=== PATIENT | male | born 1950 | race African-American/Black ===

== ENCOUNTER 2018-04-16 18:10 | Emergency (ER) | payer OTHER, MEDICAID ==
[~2018-04-16] VITALS: Ht 180.3 cm; Wt 83.9 kg
--- NOTE | 2018-04-16 18:30 | NUR ---
ED Nurse Note: Pt present at ER c/o back pain 08/25 which is chronic. pt aao x4 and skin dry but intact. calm and cooperative.
[2018-04-16] MEDS ORDERED: BENAZEPRIL HCL40 MG ORAL (18:34)
[2018-04-16] MEDS ORDERED: HYDROCHLOROTH12.5 M2 ORAL (18:34)
[2018-04-16] MEDS ORDERED: TERAZOSIN HCL1 MG ORAL (18:35)
[2018-04-16] MEDS ORDERED: Isovue-300 100ml vial INJ PRN (18:45)
--- NOTE | 2018-04-16 18:49 | Emergency Room Report ---
History of Present Illness General Chief Complaint: Back Pain-No Injury Source: Patient (Navid Regalado) Present Illness HPI 67-year-old male patient presents the ER complaining of lower back fullness that is radiating up his back to the base of his skull. Denies pain. Reports fullness is radiating down his legs. States pain has been present for the past year however has increased in intensity in the past week. Denies recent travel outside the country.. Denies history of heart disease, reports history of high blood pressure denies fever, chest pain or shortness of breath. Denies abdominal pain. Denies history of IV drug use.e states well controlled. Denies bowel or bladder incontinence. Reports has not taken medication for the past year for relief of symptoms. Reports that he was seen by primary care year ago and was told to go to physical therapy however states that he did not want to go. Denies other aggravating or relieving factors. (Navid Regalado) Allergies: Coded Allergies: No Known Allergies (Unverified , 04/16/18) Patient History Past Medical History: see triage record Reviewed Nursing Documentation: PMH: Agreed; PSxH: Agreed (Navid Regalado) Nursing Documentation-PMH Past Medical History: No History, Except For Hx Hypertension: Yes (Navid Regalado) Review of Systems All Other Systems: negative except mentioned in HPI (Navid Regalado) Physical Exam Vital Signs Date Time Temp Pulse Resp B/P (MAP) Pulse Ox O2 Delivery O2 Flow Rate FiO2 04/16/18 18:31 98.2 51 16 142/74 96 Room Air Sp02 EP Interpretation: reviewed, normal General Appearance: well appearing, no apparent distress, alert, GCS 15, non- toxic Head: normocephalic, atraumatic Eyes: bilateral eye normal inspection, bilateral eye PERRL ENT: hearing grossly normal, normal pharynx, no angioedema, normal voice, uvula midline, moist mucus membranes Neck: full range of motion, no meningismus, no bony tend Respiratory: lungs clear, normal breath sounds, no rhonchi, no respiratory distress, no accessory muscle use, no wheezing, speaking full sentences Cardiovascular #1: regular rate, rhythm, no edema Gastrointestinal: non tender, soft, no mass, non-distended, no guarding, no rebound Genitourinary: no CVA tenderness Musculoskeletal: back normal, digits/nails normal, gait/station normal, normal range of motion, non-tender Neurologic: alert, oriented x3, responsive, digital communications manager III-XII nml as tested, motor strength/tone normal, SLR negative, sensory intact, cerebellar normal, normal gait, speech normal Psychiatric: mood/affect normal Skin: no rash Lymphatic: no adenopathy (Navid Regalado) Medical Decision Making HI Attestation Dr. Brice is my supervising Physician whom patient management has been discussed with. (Navid Regalado) Medicare Attestation The history of Zay Thompson has been reviewed and management options for him have been examined and discussed by Pritesh Brice. I have personally examined and interviewed the patient. Patient also complains of some dizziness and lightheadedness,, doesn't appear comfortable I discussed the case with the patient and his brother at bedside, given the symptomatically bradycardia and his discomfort patient will be admitted for further care, (Pritesh Brice DO) Diagnostic Impression: Primary Impression: Near syncope Additional Impressions: Bradycardia Dizziness ER Course Pt. presents to the ED c/o low back pressure, and feeling faint. Ddx considered but are not limited to sprain, strain, CHF, IN, electrolyte abnormality, anemia, acute exacerbation of chronic pain. Denies bowel or bladder incontinence, does not require MRI at this time, low suspicion for cauda equina. Negative Kernig, negative Brudzinski, afebrile, low suspicion for meningitis. Vital signs: are WNL, pt. is afebrile ER COURSE: On initial exam patient complaining of pressure in spine, and requesting MRI, informed patient cannot perform MRI because there are no clinical indications at that time however would perform CT of lumbar spine to rule out fracture or any other disease. CT lumbar spine was negative, provide patient with copy of report. On repeat exam patient states that he came in today not because of continued complaints of pressure in his spine however came into the ER because he was experiencing some feelings of fainting and leg fullness. Denies history of CHF or heart disease. Denies chest pain, shortness of breath, abdominal pain. Will order cardiac labs and EKG and CT head. EKG shows sinus bradycardia, no ST elevations, troponin negative, low suspicion for IN. CBC and CMP unremarkable, no elevation in LFTs or WBCs. BNP not elevated chest x-ray unremarkable, low suspicion for CHF. Troponin negative. Coag studies unremarkable. CT head negative. Patient seen and evaluated by Dr. Brice. Will admit patient for inpatient care. - Please note that this Emergency Department Report was dictated using [employer] mechanic technology software, occasionally this can lead to erroneous entry secondary to interpretation by the dictation equipment. Labs Test 04/16/18 19:09 White Blood Count 6.5 K/UL (4.8-10.8) Red Blood Count 4.39 M/UL (4.70-6.10) Hemoglobin 14.3 G/DL (14.2-18.0) Hematocrit 43.1 % (42.0-52.0) Mean Corpuscular Volume 98 FL (80-99) Mean Corpuscular Hemoglobin 32.6 PG (27.0-31.0) Mean Corpuscular Hemoglobin Concent 33.2 G/DL (32.0-36.0) Red Cell Distribution Width 11.5 % (11.6-14.8) Platelet Count 239 K/UL (150-450) Mean Platelet Volume 6.4 FL (6.5-10.1) Neutrophils (%) (Auto) 61.1 % (45.0-75.0) Lymphocytes (%) (Auto) 26.8 % (20.0-45.0) Monocytes (%) (Auto) 8.8 % (1.0-10.0) Eosinophils (%) (Auto) 1.6 % (0.0-3.0) Basophils (%) (Auto) 1.7 % (0.0-2.0) Prothrombin Time 11.0 SEC (9.30-11.50) Prothromb Time International Ratio 1.0 (0.9-1.1) Activated Partial Thromboplast Time 27 SEC (23-33) Sodium Level 140 MMOL/L (136-145) Potassium Level 3.9 MMOL/L (3.5-5.1) Chloride Level 103 MMOL/L (98-107) Carbon Dioxide Level 31 MMOL/L (21-32) Anion Gap 7 mmol/L (5-15) Blood Urea Nitrogen 15 mg/dL (7-18) Creatinine 1.2 MG/DL (0.55-1.30) Estimat Glomerular Filtration Rate > 60 mL/min (>60) Glucose Level 104 MG/DL (74-106) Calcium Level 9.2 MG/DL (8.5-10.1) Total Bilirubin 1.1 MG/DL (0.2-1.0) Direct Bilirubin 0.2 MG/DL (0.0-0.3) Aspartate Amino Transf (AST/SGOT) 23 U/L (15-37) Alanine Aminotransferase (ALT/SGPT) 20 U/L (12-78) Alkaline Phosphatase 63 U/L (46-116) Troponin I 0.000 ng/mL (0.000-0.056) Pro-B-Type Natriuretic Peptide 75 pg/mL (0-125) Total Protein 7.5 G/DL (6.4-8.2) Albumin 3.7 G/DL (3.4-5.0) Globulin 3.8 g/dL Albumin/Globulin Ratio 1.0 (1.0-2.7) (Navid Regalado P.A.) ER Course Please see above notes. Patient discussed with Dr. Laird and accepted for transfer at [facility]. Told needs ALS. Patient ambulatory and eating without difficulty. (Todd Gross MD) EKG Diagnostic Results Rate: normal Rhythm: NSR ST Segments: no acute changes ASA given to the pt in ED: No PA Scribe Text Mauricio Regalado PA-C (Navid Regalado P.A.) Rhythm Strip Diag. Results Rate: 51 Rhythm: NSR, no PVC's, no ectopy PA Scribe Text Mauricio Regalado PA-C (Navid Regalado P.A.) Chest X-Ray Diagnostic Results Chest X-Ray Diagnostic Results : Chest X-Ray Ordered: Yes # of Views/Limited/Complete: 1 View Indication: Chest Pain EP Interpretation: Yes PA Xray: Interpretation reviewed, by supervising MD, and agrees with findings. Interpretation: no consolidation, no effusion, no pneumothorax, no acute cardiopulmonary disease, other - Chronic interstitial changes bilaterally Impression: No acute disease PA Scribe Text Mauricio Regalado PA-C (Navid Regalado P.A.) CT/MRI/US Diagnostic Results CT/MRI/US Diagnostic Results #1: Imaging Test Ordered: CT lumbar spine Impression No fracture or malalignment. Degenerative changes noted. CT/MRI/US Diagnostic Results #2: Imaging Test Ordered: CT head Impression Unremarkable CT brain (Navid Regalado) Last Vital Signs Date Time Temp Pulse Resp B/P (MAP) Pulse Ox O2 Delivery O2 Flow Rate FiO2 04/16/18 18:31 98.2 51 16 142/74 96 Room Air (Navid Regalado) Last Vital Signs Date Time Temp Pulse Resp B/P (MAP) Pulse Ox O2 Delivery O2 Flow Rate FiO2 04/17/18 06:41 98.6 61 14 145/65 96 Room Air Status: improved (Todd Gross MD) [facility] Condition: Serious Navid Regalado Apr 16, 2018 18:49 Pritesh Brice DO Apr 16, 2018 21:10 Todd Gross MD Apr 17, 2018 01:53
--- NOTE | 2018-04-16 18:55 | NUR ---
ED Nurse Note: pt was taken to CT scan. per ERPA it is ok for pt to go before carrying any other orders. CT scan is the most urgent.
[2018-04-16 19:20] VITALS: BP 142/74
[2018-04-16 19:40] VITALS: BP 136/87
--- NOTE | 2018-04-16 19:51 | Diagnostic Imaging Report ---
EXAM: CT Lumbar Spine Without Intravenous Contrast CLINICAL HISTORY: PAIN TECHNIQUE: Axial computed tomography images of the lumbar spine without intravenous contrast. CTDI is 15.73+0.25 mGy and DLP is 528 mGy-cm. One or more of the following dose reduction techniques were used: automated exposure control, adjustment of the mA and/or kV according to patient size, use of iterative reconstruction technique. COMPARISON: No relevant prior studies available. FINDINGS: Vertebrae: No fracture or malalignment. Discs/spinal canal/neural foramina: Degenerative changes. Soft tissues: Unremarkable. IMPRESSION: No fracture or malalignment.
--- NOTE | 2018-04-16 19:57 | NUR ---
HAND-OFF: Report given to AMEENA Avalos.
--- NOTE | 2018-04-16 20:00 | NUR ---
ED Nurse Note: received report and endorsed care, pt vss, sinus greg on cardiac cath technician, resp even and unlabored on RA, will cont monitor. verified w/ ERMD regarding pt eating, ERMD stated okay, pt given sandwich and juice. pt tolerated well. denies dizziness or weakness at this time.
--- NOTE | 2018-04-16 20:13 | NUR ---
ED Nurse Note: pt off to CT.
[2018-04-16 20:20] LABS: ANION GAP 7 mmol/L (5-15); BLOOD UREA NITROGEN 15 mg/dL (7-18); CALCIUM 9.2 MG/DL (8.5-10.1); CARBON DIOXIDE 31 MMOL/L (21-32); CHLORIDE 103 MMOL/L (98-107); CREATININE 1.2 MG/DL (0.55-1.30); POTASSIUM 3.9 MMOL/L (3.5-5.1); SODIUM 140 MMOL/L (136-145)
[2018-04-16 20:28] LABS: BASOPHILS % (AUTO) 1.7 % (0.0-2.0); EOSINOPHILS % (AUTO) 1.6 % (0.0-3.0); HEMATOCRIT 43.1 % (42.0-52.0); HEMOGLOBIN 14.3 G/DL (14.2-18.0); LYMPHOCYTES % (AUTO) 26.8 % (20.0-45.0); MEAN CORPUSCULAR VOLUME 98 FL (80-99); MONOCYTES % (AUTO) 8.8 % (1.0-10.0); NEUTROPHILS % (AUTO) 61.1 % (45.0-75.0); PLATELET COUNT 239 K/UL (150-450); RED BLOOD COUNT 4.39 M/UL (4.70-6.10); RED CELL DISTRIBUTION WIDTH 11.5 % (11.6-14.8); WHITE BLOOD COUNT 6.5 K/UL (4.8-10.8)
[2018-04-16 20:31] LABS: ALANINE AMINOTRANSFERASE 20 U/L (12-78); ALBUMIN 3.7 G/DL (3.4-5.0); ALKALINE PHOSPHATASE 63 U/L (46-116); ASPARTATE AMINO TRANSFERASE 23 U/L (15-37); BILIRUBIN,TOTAL 1.1 MG/DL (0.2-1.0)
[2018-04-16 20:33] LABS: BILIRUBIN,DIRECT 0.2 MG/DL (0.0-0.3)
[2018-04-16 21:00] VITALS: BP 136/78
[2018-04-16 23:00] VITALS: BP 146/87
[2018-04-16 23:41] LABS: APPEARANCE,URINE CLEAR; BILIRUBIN, URINE NEGATIVE (NEGATIVE); GLUCOSE, URINE (UA) NEGATIVE (NEGATIVE); KETONES,URINE 1+ (NEGATIVE); LEUKOCYTE ESTERASE ,URINE 1+ (NEGATIVE); NITRITE,URINE NEGATIVE (NEGATIVE); PH,URINE 5 (4.5-8.0); PROTEIN,URINE NEGATIVE (NEGATIVE); UROBILINOGEN,URINE NORMAL MG/DL (0.0-1.0)
[2018-04-16 23:42] LABS: COLOR,URINE YELLOW
[2018-04-17 01:00] VITALS: BP 136/78
--- NOTE | 2018-04-17 01:36 | NUR ---
Face sheet and clinicals faxed to Selina @ [phone] as requested.
[2018-04-17 03:00] VITALS: BP 134/69
--- NOTE | 2018-04-17 03:00 | NUR ---
HANDOFF: REport given to RN alessio and endorsed care, pt VSS, sinus greg on athletic monitor, resp even and unlabored on RA, will cont monitor.
--- NOTE | 2018-04-17 04:38 | NUR ---
ED Nurse Note: REPORT GIVEN TO AMEENA SALAZAR AT [facility], [facility] AT 0500
--- NOTE | 2018-04-17 06:30 | NUR ---
ED Nurse Note: Patient being transferred to [facility]. Patient being transferred by [id number]. Patient sent with IV access. Patient report given to Nyasia at [facility]. Patient AOx4, VSS, ambulatory with steady gait, no s/s of acute distress noted.
[2018-04-17 06:34] VITALS: BP 145/65
[2018-04-17 06:41] VITALS: BP 145/65
== END 2018-04-17 06:42 | disposition other institution (70) ==
LOC: EMR 18:47
DX: R55 Syncope and collapse (principal); R00.1 Bradycardia, unspecified; R42 Dizziness and giddiness; I10 Essential (primary) hypertension
CPT/HCPCS: 36415; 70450; 71045; 72131; 80053; 81003; 82248; 83880; 84484; 85025; 85610; 85730; 93005; 99284

== ENCOUNTER 2018-08-27 02:41 | Emergency (ER) | payer MEDICARE, MEDICAID ==
[~2018-08-27] VITALS: Ht 180.3 cm; Wt 77.1 kg
[2018-08-27 02:41] VITALS: BP 164/80
[~2018-08-27 02:41] MED LIST: BENAZEPRIL HCL40 MG ORAL; HYDROCHLOROTH12.5 M2 ORAL; TERAZOSIN HCL1 MG ORAL
[2018-08-27 02:45] VITALS: BP 164/80
--- NOTE | 2018-08-27 02:45 | NUR ---
ED Nurse Note: Pt BIBA from home c/o chronic 10/10 neck pain x5 months, pt has hx of spinal stenosis. Pt is A&Ox4, VSS
[2018-08-27] MEDS ORDERED: IBUPROFEN600 MG ORAL (03:25)
[2018-08-27] MEDS ORDERED: PREDNISONE20 MG ORAL (03:25)
--- NOTE | 2018-08-27 03:25 | Emergency Room Report ---
History of Present Illness General Chief Complaint: Pain Source: Patient Present Illness HPI This is a 68-year-old male with a history of high blood pressure. He presents with chief complaint of neck pressure. Onset for at least 5 months. He had a MRI of his neck and it shows stenosis around the C7 area. He said he has a lot of pressure over that area. It radiates to her ribs and neck and head. So severe that he said he felt like he was in a pass out. He called 911. This is a chronic issue. He said he been to multiple ER for this. He refused pain medication. He is want something for "relieve the pressure." Edge of her surgery in October. No focal deficit. No weakness. No fever chills. No incontinence of bowel or urine. Denies any other complaint. Allergies: Coded Allergies: No Known Allergies (Unverified , 04/16/18) Patient History Past Medical History: see triage record, old chart reviewed, HTN Past Surgical History: none Pertinent Family History: none Social History: Denies: smoking Immunizations: other Reviewed Nursing Documentation: PMH: Agreed; PSxH: Agreed Nursing Documentation-PMH Hx Hypertension: Yes Review of Systems Eye: Denies: eye pain, blurred vision ENT: Denies: ear pain, nose congestion, throat swelling Respiratory: Denies: cough, shortness of breath Cardiovascular: Denies: chest pain, palpitations Gastrointestinal: Denies: abdominal pain, diarrhea, nausea, vomiting Musculoskeletal: Denies: back pain, joint pain Skin: Denies: rash Neurological: Denies: headache, numbness Endocrine: Denies: increased thirst, increased urine Hematologic/Lymphatic: Denies: easy bruising All Other Systems: negative except mentioned in HPI Physical Exam Vital Signs Date Time Temp Pulse Resp B/P (MAP) Pulse Ox O2 Delivery O2 Flow Rate FiO2 08/27/18 02:41 98.2 86 16 164/80 (108) 99 Room Air Vitals with high blood pressure Sp02 EP Interpretation: reviewed, normal General Appearance: well appearing, no apparent distress, alert Head: normocephalic, atraumatic Eyes: bilateral eye PERRL, bilateral eye EOMI ENT: hearing grossly normal, normal pharynx Neck: full range of motion, supple, no meningismus Respiratory: chest non-tender, lungs clear, normal breath sounds Cardiovascular #1: regular rate, rhythm, no murmur Gastrointestinal: normal bowel sounds, non tender, no mass, no organomegaly, no bruit, non-distended Musculoskeletal: back normal, gait/station normal, normal range of motion Psychiatric: mood/affect normal Medical Decision Making Diagnostic Impression: Primary Impression: Degenerative disc disease, cervical ER Course Patient presents with degenerative disc disease with stenosis. I suspect there is a high psychogenic/anxiety component to this. There is no evidence of cauda equina syndrome, spinal epidural abscess or neoplastic process. Will discharge home. Last Vital Signs Date Time Temp Pulse Resp B/P (MAP) Pulse Ox O2 Delivery O2 Flow Rate FiO2 08/27/18 02:41 98.2 86 16 164/80 (108) 99 Room Air Status: improved Disposition: HOME, SELF-CARE Condition: Stable Scripts Prednisone* (PREDNISONE*) 20 Mg Tablet 40 MG ORAL DAILY, #8 TAB Prov: Charlie Muhammad MD 08/27/18 Ibuprofen* (MOTRIN*) 600 Mg Tablet 600 MG ORAL THREE TIMES A DAY, #30 TAB 0 Refills Prov: Charlie Muhammad MD 08/27/18 Additional Instructions: Follow-up with your doctor in a week. Return if symptoms worsen. Charlie Muhammad MD Aug 27, 2018 03:25
--- NOTE | 2018-08-27 03:30 | NUR ---
ER DISCHARGE NOTE: Patient is cleared to be discharged per ERMD, pt is aox4, on room air, with stable vital signs. pt was given dc and prescription instructions, pt was able to verbalize understanding, pt id band removed. pt is able to ambulate with steady gait. pt took all belongings.
== END 2018-08-27 03:30 | disposition home or self-care (01) ==
LOC: EDBD 02:41 → EMR 03:30
DX: M50.30 Other cervical disc degeneration, unspecified cervical region (principal)
CPT/HCPCS: 99283; J7512

== ENCOUNTER 2019-05-03 19:11 | Emergency (ER) | payer MEDICARE, MEDICAID ==
[~2019-05-03] VITALS: Ht 180.3 cm; Wt 93.9 kg
[~2019-05-03 19:11] MED LIST changes: +IBUPROFEN600 MG ORAL; +PREDNISONE20 MG ORAL
--- NOTE | 2019-05-03 19:17 | NUR ---
ED Nurse Note: PT BIBA RA 67 FROM HOME C/O BACK PRESSURE THAT RADIATES TO CHEST BUT DENIES PAIN. PT STATES HX SPINAL STENOSIS AND HTN. BP 221/106 AT TRIAGE, OTHERWISE VSS, NAD. WILL CONTINUE TO MONITOR PATIENT.
--- NOTE | 2019-05-03 19:20 | NUR ---
ED Nurse Note: ERMD AT BEDSIDE
--- NOTE | 2019-05-03 19:30 | NUR ---
ED Nurse Note: BLOOD DRAWN AND SENT TO LAB
[2019-05-03 19:43] VITALS: BP 169/88
[2019-05-03] MEDS ORDERED: Solu-MEDROL 125mg Inj IVP ONE (19:45)
[2019-05-03 20:02] LABS: ANION GAP 7 mmol/L (5-15); BLOOD UREA NITROGEN 14 mg/dL (7-18); CALCIUM 9.5 MG/DL (8.5-10.1); CARBON DIOXIDE 33 MMOL/L (21-32); CHLORIDE 109 MMOL/L (98-107); CREATININE 1.1 MG/DL (0.55-1.30); POTASSIUM 4.2 MMOL/L (3.5-5.1); SODIUM 149 MMOL/L (136-145)
[2019-05-03 20:07] LABS: ALANINE AMINOTRANSFERASE 25 U/L (12-78); ALBUMIN 3.5 G/DL (3.4-5.0); ALKALINE PHOSPHATASE 62 U/L (46-116); ASPARTATE AMINO TRANSFERASE 17 U/L (15-37); BILIRUBIN,TOTAL 0.8 MG/DL (0.2-1.0)
[2019-05-03 20:14] LABS: BASOPHILS % (AUTO) 1.9 % (0.0-2.0); EOSINOPHILS % (AUTO) 2.3 % (0.0-3.0); HEMATOCRIT 44.7 % (42.0-52.0); HEMOGLOBIN 14.5 G/DL (14.2-18.0); LYMPHOCYTES % (AUTO) 23.6 % (20.0-45.0); MEAN CORPUSCULAR VOLUME 98 FL (80-99); NEUTROPHILS % (AUTO) 65.2 % (45.0-75.0); PLATELET COUNT 226 K/UL (150-450); RED BLOOD COUNT 4.54 M/UL (4.70-6.10); RED CELL DISTRIBUTION WIDTH 12.7 % (11.6-14.8)
[2019-05-03 20:31] VITALS: BP 163/72
[2019-05-03 20:32] VITALS: BP 163/72
--- NOTE | 2019-05-03 20:32 | NUR ---
ER DISCHARGE NOTE: Patient is cleared to be discharged per ERMD, pt is aox4, on room air, with stable vital signs. pt was given dc instructions, pt was able to verbalize understanding, pt id band and iv site removed without complications. pt is able to ambulate with steady gait. pt took all belongings.
--- NOTE | 2019-05-03 21:53 | Emergency Room Report ---
History of Present Illness General Chief Complaint: Back Pain-No Injury Source: Patient Present Illness HPI 68-year-old male presents the ED for evaluation. Brought in by EMS from home. Complaining of "pressure" in his back. History of spinal stenosis. States he had surgery on his back about 7 months ago. Believes it was a spinal fusion. States since then he has had continued pressure sensation in his upper back. Has been to multiple ERs for evaluation of this. Has had recent MRIs which have been unremarkable. Denies pain. States he is able to walk. States he has been trying to get an appointment with a surgeon for several months now. denies Bowel or bladder incontinence. No other aggravating relieving factors. Denies any other associated symptoms COVID-19 risk:Travel to affect: No Has patient experienced iyer: No Allergies: Coded Allergies: No Known Allergies (Unverified , 04/16/18) Patient History Past Medical History: HTN Past Surgical History: none Pertinent Family History: none Social History: Denies: smoking, alcohol use, drug use Immunizations: UTD Reviewed Nursing Documentation: PMH: Agreed; PSxH: Agreed Nursing Documentation-PMH Hx Hypertension: Yes Review of Systems All Other Systems: negative except mentioned in HPI Physical Exam Vital Signs Date Time Temp Pulse Resp B/P (MAP) Pulse Ox O2 Delivery O2 Flow Rate FiO2 05/03/19 19:12 99.0 77 18 221/106 (144) 98 Room Air Sp02 EP Interpretation: reviewed, normal General Appearance: no apparent distress, alert, GCS 15, non-toxic Head: normocephalic, atraumatic Eyes: bilateral eye normal inspection, bilateral eye PERRL ENT: hearing grossly normal, normal pharynx, no angioedema, normal voice Neck: full range of motion, supple/symm/no masses Respiratory: chest non-tender, lungs clear, normal breath sounds, speaking full sentences Cardiovascular #1: regular rate, rhythm, no edema Cardiovascular #2: 2+ carotid (R), 2+ carotid (L), 2+ radial (R), 2+ radial (L) , 2+ dorsalis pedis (R), 2+ dorsalis pedis (L) Gastrointestinal: normal bowel sounds, non tender, soft, non-distended, no guarding, no rebound Rectal: deferred Genitourinary: normal inspection, no CVA tenderness Musculoskeletal: back normal, normal range of motion, gait/station normal, non- tender Neurologic: alert, motor strength/tone normal, oriented x3, sensory intact, responsive, speech normal, other - 5/5 strength lower extremities Psychiatric: judgement/insight normal, memory normal, mood/affect normal, no suicidal/homicidal ideation Reflexes: 3+ bicep (R), 3+ bicep (L), 3+ tricep (R), 3+ tricep (L), 3+ knee (R) , 3+ knee (L) Lymphatic: no adenopathy Medical Decision Making Diagnostic Impression: Primary Impression: Back pain Qualified Codes: M54.6 - Pain in thoracic spine; G89.29 - Other chronic pain ER Course Hospital Course 68 yo M presents with pressure in upper back. h/o back surgery. Differential diagnoses include: muscle strain, fx, chronic pain Clinical course Patient placed on stretcher. After initial history illness elderly male in no acute distress. There is no midline tenderness. 5 out of 5 strength in lower extremities. And in upper extremities. Sensory intact. I contacted [facility]. Stated that patient would benefit from either observation or prompt follow-up with his PMD and surgeon as he has been attempting for several months to get appointments. [facility] stated that they would facilitate appointments for the patient this week. I agree that patient can be discharged home at this time. I discussed findings with patient. He agrees with plan. Safe for discharge with close outpatient follow-up Diagnosis - back pain Stable and discharged to home. Followup with PMD. Return to ED if symptoms recur or worsen Last Vital Signs Date Time Temp Pulse Resp B/P (MAP) Pulse Ox O2 Delivery O2 Flow Rate FiO2 05/03/19 20:32 98.6 71 18 163/72 98 Room Air Status: improved Disposition: HOME, SELF-CARE Condition: Stable Referrals: [facility], [facility] (PCP) Patient Instructions: Back Pain, Adult Ibrahima Arriola MD May 03, 2019 21:53
== END 2019-05-03 20:32 | disposition home or self-care (01) ==
LOC: EDBD 19:11 → EMR 19:52 → CANBEDREQ 20:34
DX: M54.6 Pain in thoracic spine (principal); G89.29 Other chronic pain; I10 Essential (primary) hypertension
CPT/HCPCS: 36415; 80053; 85025; 96374; 99284; J2930

== ENCOUNTER 2019-06-10 12:23 | Emergency (ER) | payer OTHER, MEDICAID ==
[~2019-06-10] VITALS: Ht 175.3 cm; Wt 81.6 kg
[2019-06-10 12:30] VITALS: BP 122/59
--- NOTE | 2019-06-10 12:35 | NUR ---
ED Nurse Note: patient was brought in by ambulance from home due to chronic back pain; reports no recent injury. Reports no numnbess or tingling in BLE. Patient presented calm, cooperative, AAO x4, VSS at this time, skin is warm to touch, has non-labored breathing.
[2019-06-10] MEDS ORDERED: Ketorolac 30mg Inj IV ONE (12:45)
[2019-06-10] MEDS ORDERED: Acetaminophen 500mg (ES) tab ORAL ONE (12:45)
[2019-06-10] MEDS ORDERED: Hydromorphone 0.5mg/0.5ml inj IVP ONE (12:45)
--- NOTE | 2019-06-10 12:52 | Emergency Room Report ---
History of Present Illness General Chief Complaint: Back Pain-No Injury Source: Patient, EMS Present Illness HPI 68 year old male pmhx of spinal stenosis, presents with 14 months of back pain, reports that it acutely worsened today, alleviated by lying on back, worsened by activity, and standing up right patient reports that he is following up with Mahamed Lamas MD neurosurgery, however he was lost to follow-up. He denies any weakness, bowel bladder retention, perianal numbness. Patient presents for evaluation and pain control. No f/c, cough, congestion, cp, abdominal pain. Allergies: Coded Allergies: No Known Allergies (Unverified , 04/16/18) COVID-19 Screening Contact w/high risk pt: No Recent Travel to affected area: No Experienced COVID-19 symptoms?: No Patient History Past Medical History: see triage record Reviewed Nursing Documentation: PMH: Agreed; PSxH: Agreed Nursing Documentation-PM Past Medical History: No History, Except For Hx Hypertension: Yes Review of Systems All Other Systems: negative except mentioned in HPI Physical Exam Vital Signs Date Time Temp Pulse Resp B/P (MAP) Pulse Ox O2 Delivery O2 Flow Rate FiO2 06/10/19 12:22 97.2 72 15 122/59 (80) 99 Room Air General Appearance: well appearing, no apparent distress Head: normocephalic, atraumatic ENT: hearing grossly normal, normal voice Neck: full range of motion, supple Respiratory: no respiratory distress, speaking full sentences Musculoskeletal: other - There is to palpation mid lower back L3-L4-L5, 5 out of 5 strength bilaterally ankle knee, hip, 2+ patellar reflexes bilaterally, sensation grossly intact bilaterally. Back: No step-offs Neurologic: alert, normal gait Psychiatric: mood/affect normal Skin: no rash Medical Decision Making Diagnostic Impression: Primary Impression: Back pain Qualified Codes: M54.5 - Low back pain; G89.29 - Other chronic pain ER Course The patient presents with acute on chronic back pain. Clinically this patient can be ruled out for serious pathology given there is a completely normal neurological exam, no history of IV drug use, and no history of bowel or bladder incontinence, no perianal numbness/tingling, no constipation or urinary retention. Once the patient's pain was adequately controlled, the patient was able to ambulate and be discharged in stable condition with anticipatory guidance provided. Patient was counseled on how to utilize this year care plan to find a PCP coordinate with the PCP and get a referral to a neuro surgeon Strict return precautions were discussed, pain regimen was provided disposition home with return precautions CT/MRI/US Diagnostic Results CT/MRI/US Diagnostic Results : Impression Procedure: CT Abdomen Pelvis WO Contrast Indication: Abdominal pain, acute worsening of back pain Technique: Spiral acquisitions obtained through the abdomen and pelvis. No oral contrast utilized, per emergency room physician request No IV contrast utilized , per emergency room physician request.. Multiplanar reconstructions were generated. Total dose length product 586 mGycm. CTDIvol(s) 9 mGy. Dose reduction achieved using automated exposure control Comparison: None Findings: Lack of enteric contrast limits assessment of the GI tract. Normal appendix. No evidence of colonic diverticulosis or diverticulitis. No small bowel distention no free or loculated intraperitoneal gas or fluid. Distal esophagus, stomach, duodenum are unremarkable. There is a small fat-containing umbilical hernia. There are small fat-containing bilateral inguinal hernias. Lack of IV contrast limits assessment of the solid organs. The liver, gallbladder, bile ducts, pancreas, spleen, adrenals, right kidney are all unremarkable. The left kidney demonstrates a punctate upper pole peripheral parenchymal. No pelvic mass or adenopathy. No retroperitoneal or mesenteric mass or adenopathy. The bones demonstrate mild degenerative spondylosis changes. There are degenerative changes of both hips. The included lung bases demonstrate posterior dependent atelectatic changes. The heart is borderline enlarged. Impression: Limited assessment of the GI tract, due to lack of enteric contrast administration No definite acute abnormality Borderline cardiomegaly Mild degenerative spondylosis changes Incidental findings noted, including bilateral hip degenerative changes, posterior dependent pulmonary atelectatic changes, left upper pole renal parenchymal calcification, small umbilical and inguinal hernias containing only fat The CT scanner at [facility] is accredited by the [employer] and the scans are performed using protocols designed to limit radiation exposure to as low as reasonably achievable to attain images of sufficient resolution adequate for diagnostic evaluation. Dictated By: Aron Quinn MD Electronically Signed By: Aron Quinn MD Signed Date/Time 06/10/19 6107 CC: Ezio Newberry MD Last Vital Signs Date Time Temp Pulse Resp B/P (MAP) Pulse Ox O2 Delivery O2 Flow Rate FiO2 06/10/19 12:22 97.2 72 15 122/59 (80) 99 Room Air Disposition: HOME, SELF-CARE Condition: Stable Scripts Lidocaine Patch* (Lidoderm Patch*) 1 Each Adh..patch 1 PATCH TOPIC DAILY PRN for For Pain, #7 PATCH 0 Refills Patch(es) may remain in place for up to 12 hours in any 24-hour period. Prov: Ezio Newberry MD 06/10/19 Ibuprofen* (MOTRIN*) 600 Mg Tablet 600 MG ORAL Q8H PRN for FOR PAIN, #30 TAB 0 Refills Prov: Ezio Newberry MD 06/10/19 Acetaminophen (Tylenol) 325 Mg Tablet 650 MG ORAL Q6H PRN for Prn Pain/Headache/Temp > 101, #30 TAB 0 Refills Prov: Ezio Newberry MD 06/10/19 Referrals: [facility] Patient Instructions: Back Pain, Adult Additional Instructions: The patient was provided with discharge instructions, notified to follow-up with a primary care doctor and or specialist in the next 24-48 hours, and to return to the ED if they have worsening of their symptoms. Please note that this report is being documented using [employer] technology. This can lead to erroneous entry secondary to incorrect interpretation by the dictating instrument. Ezio Newberry MD Jun 10, 2019 12:52
--- NOTE | 2019-06-10 14:39 | Diagnostic Imaging Report ---
Indication: Abdominal pain, acute worsening of back pain Technique: Spiral acquisitions obtained through the abdomen and pelvis. No oral contrast utilized, per emergency room physician request No IV contrast utilized, per emergency room physician request.. Multiplanar reconstructions were generated. Total dose length product 586 mGycm. CTDIvol(s) 9 mGy. Dose reduction achieved using automated exposure control Comparison: None Findings: Lack of enteric contrast limits assessment of the GI tract. Normal appendix. No evidence of colonic diverticulosis or diverticulitis. No small bowel distention no free or loculated intraperitoneal gas or fluid. Distal esophagus, stomach, duodenum are unremarkable. There is a small fat-containing umbilical hernia. There are small fat-containing bilateral inguinal hernias. Lack of IV contrast limits assessment of the solid organs. The liver, gallbladder, bile ducts, pancreas, spleen, adrenals, right kidney are all unremarkable. The left kidney demonstrates a punctate upper pole peripheral parenchymal. No pelvic mass or adenopathy. No retroperitoneal or mesenteric mass or adenopathy. The bones demonstrate mild degenerative spondylosis changes. There are degenerative changes of both hips. The included lung bases demonstrate posterior dependent atelectatic changes. The heart is borderline enlarged. Impression: Limited assessment of the GI tract, due to lack of enteric contrast administration No definite acute abnormality Borderline cardiomegaly Mild degenerative spondylosis changes Incidental findings noted, including bilateral hip degenerative changes, posterior dependent pulmonary atelectatic changes, left upper pole renal parenchymal calcification, small umbilical and inguinal hernias containing only fat The CT scanner at [facility] is accredited by the [employer] and the scans are performed using protocols designed to limit radiation exposure to as low as reasonably achievable to attain images of sufficient resolution adequate for diagnostic evaluation.
[2019-06-10] MEDS ORDERED: TYLENOL325 MG ORAL (14:49)
[2019-06-10] MEDS ORDERED: IBUPROFEN600 M1 ORAL (14:49)
[2019-06-10] MEDS ORDERED: LIDODERM700 M1 TOPIC (14:49)
[2019-06-10 15:45] VITALS: BP 122/59
--- NOTE | 2019-06-10 15:45 | NUR ---
ER DISCHARGE NOTE: Patient is cleared to be discharged per ERMD, pt is aox4, on room air, with stable vital signs. pt was given dc and prescription instructions, pt was able to verbalize understanding, pt id band and iv site removed without complications. pt is able to ambulate with steady gait. pt took all belongings.
== END 2019-06-10 15:45 | disposition home or self-care (01) ==
LOC: EDBD 12:23 → EMR 13:31
DX: M54.5 Low back pain (principal); G89.29 Other chronic pain; I10 Essential (primary) hypertension; M47.9 Spondylosis, unspecified
CPT/HCPCS: 74176; 96374; 96375; 99284; J1170; J1885; J2405